=== PATIENT | male | born 1960 | race American Indian/Alaskan Native ===

== ENCOUNTER 2016-05-21 05:41 | Day surgery (SDC) | payer MEDICARE, MEDICAID ==
[~2016-05-21 05:41] MED LIST: Dextrose 5%-0.45% NaCl 1,000 ML IV SCH; Sodium Chloride 0.9% 10 ML Syringe FLUSH PRN
[2016-05-21] MEDS ORDERED: Midazolam 1 MG/ML 2 ML SDV ONE (06:44)
[2016-05-21] MEDS ORDERED: fentaNYL 100 MCG/2 ML SDV ONE (06:44)
[2016-05-21] MEDS ORDERED: fentaNYL 100 MCG/2 ML SDV IV ONE ×4 (06:58→10:47)
[2016-05-21] MEDS ORDERED: Midazolam 1 MG/ML 2 ML SDV IV ONE ×7 (06:59→10:47)
--- NOTE | 2016-05-21 10:02 | OR ---
DATE: 05/21/2016 PROCEDURE: Total colonoscopy, NBI, and multiple pinch biopsies. INSTRUMENT USED: CF-H180AL Olympus video colonoscope. PREMEDICATIONS: Fentanyl 125 mcg intravenous, Versed 4 mg intravenous. Nasal 2 L O2 cannula. The procedure was done under pulse oximetry, BP recording, and vehicle monitor technician. INDICATION: The patient with rectal bleeding. Colonoscopic examination is done for detection of any polypoid lesions and removal, endoscopic hemostasis therapy if needed. DESCRIPTION OF PROCEDURE: Initial rectal exam showed external hemorrhoidal tags. Rigid anoscopy showed moderate sized internal hemorrhoids without bleeding from them. The colonoscope was passed with ease. Numerous benign-appearing diminutive matted kind of polyps at least around 20 in number were noted in the rectal area, NBI views were obtained, numerous pinch biopsies were obtained and sent for histopathology. The scope was passed with ease up to the ileocecal area, photographs were taken of the cecum identified by landmarks of appendiceal orifice and ileocecal folds. Mucosa around the appendiceal orifice showed some diffuse erythema. The examination was compromised in a few areas due to the presence of large amount of fecal material that had to be aspirated. No bleeding was noted from any of the visualized areas at the commencement of the examination. No stricture. No vascular ectasia. No large isolated ulcerations seen. No evidence of diffuse inflammatory bowel disease in the form of friability, contact bleeding, or ulcerations. Probing the proximal sides of folds and flexures, using adequate distention and clearing up the stool material, withdrawal of the scope was made, cecum to rectum time over 6 minutes. No bleeding was noted from any of the visualized areas at the completion of examination. IMPRESSION: 1. External and internal hemorrhoids. 2. Multiple diminutive rectal polyps. The patient tolerated the procedure well. [facility] /[id number]
[2016-06-27 13:47] VITALS: BP 138/75
== END 2016-05-21 09:30 | disposition home or self-care (01) ==
LOC: DL.ENDO 05:41
PROVIDERS: ATTEND Internal Medicine Gastroenterology
DX: K62.1 Rectal polyp (principal); K64.4 Residual hemorrhoidal skin tags; I11.9 Hypertensive heart disease without heart failure; N18.9 Chronic kidney disease, unspecified; Z80.0 Family history of malignant neoplasm of digestive organs; Z99.2 Dependence on renal dialysis
CPT/HCPCS: 45380; 88305; J2250; J3010; J7042

== ENCOUNTER 2016-10-06 05:47 | Emergency (ER) | payer MEDICARE, MEDICAID ==
[2016-10-06] MEDS ORDERED: Ketorolac 30 MG/ML SDV IM ONE (05:59)
--- NOTE | 2016-10-06 06:06 | EDM.PDOC ---
ED HPI GENERAL MEDICAL PROBLEM - General Chief Complaint: Lower Extremity Injury/Pain Stated Complaint: HIP PAIN Time Seen by Provider: 10/06/16 06:00 Source of Information: Reports: Patient History Limitations: Reports: No Limitations - History of Present Illness INITIAL COMMENTS - FREE TEXT/NARRATIVE: states has charcot's foot from DM and walks crooked which will cause LBP on- off. present episode started last week but progressively gotten worse. denies recent re-injury. Right Hip Pain Score (Numeric/FACES): 9 - Related Data Allergies Allergy/AdvReac Type Severity Reaction Status Date / Time No Known Allergies Allergy Verified 10/06/16 06:03 Home Meds: Home Meds Aspirin [Halfprin] 81 mg PO DAILY 12/01/13 [History] Insulin Detemir [Levemir] 18 unit SQ DAILY 12/01/13 [History] Labetalol HCl [Labetalol] 400 mg PO TID 12/01/13 [History] Sodium Bicarbonate 650 mg PO BID 12/01/13 [History] Tamsulosin HCl [Flomax] 0.8 mg PO DAILY 12/01/13 [History] amLODIPine [Norvasc] 10 mg PO DAILY 12/01/13 [History] Acetaminophen [Non-Aspirin Pain Relief] 650 mg PO ASDIRECTED PRN 01/06/14 [ History] Bumetanide [Bumex] 2 mg PO BID 01/06/14 [History] Docusate Sodium [Colace] 100 mg PO TID 01/06/14 [History] Spironolactone [Aldactone] 25 mg PO BID 01/06/14 [History] Amitriptyline [Elavil] 50 mg PO DAILY PRN 11/13/15 [History] Calcitriol [Rocaltrol] 0.75 mcg PO DAILY 11/13/15 [History] Calcium Acetate [PhosLo] 2 tab PO TID 11/13/15 [History] Calcium Carbonate [Tums] 500 mg PO ASDIRECTED 11/13/15 [History] Metolazone [Zaroxolyn] 5 mg PO DAILY 11/13/15 [History] Psyllium with Sucrose [Metamucil] 1 each PO DAILY PRN 11/13/15 [History] Sennosides/Docusate Sodium [Senna-Docusate Sodium] 1 each PO BID 11/13/15 [ History] Sevelamer Carbonate [Renvela] 4 tab PO TIDMEALS 11/13/15 [History] cloNIDine [Catapres] 0.4 mg PO TID 11/13/15 [History] hydrOXYzine HCl [Atarax] 25 mg PO DAILY PRN 11/13/15 [History] Bisacodyl [Dulcolax] 10 mg PO BID 05/20/16 [History] Hydrocortisone [Hydrocortisone 2.5% Crm] 1 dose TOP ASDIRECTED 05/20/16 [History ] Magnesium Hydroxide [Milk of Magnesia] 1 dose PO ASDIRECTED PRN 05/20/16 [ History] Minoxidil [Loniten] 2.5 mg PO BID 05/20/16 [History] Mupirocin Oint [Bactroban Oint] 1 applic TOP ASDIRECTED 05/20/16 [History] Pregabalin [Lyrica] 50 mg PO BID 05/20/16 [History] Sennosides [Perdiem] 15 mg PO ASDIRECTED 05/20/16 [History] Vitamin B Complex [B Complex] 1 tab PO DAILY 05/20/16 [History] Past Medical History HEENT History: Reports: None Other HEENT History: Ears are plugged now. Cardiovascular History: Reports: Hypertension Respiratory History: Reports: None Gastrointestinal History: Reports: Chronic Constipation Genitourinary History: Reports: Chronic Renal Insuffiency, Dialysis, Peritoneal Other Genitourinary History: Has a peritoneal catheter in place. Musculoskeletal History: Reports: None Neurological History: Reports: None Psychiatric History: Reports: None Endocrine/Metabolic History: Reports: Diabetes, Type II Hematologic History: Reports: Anemia, Iron Deficiency Immunologic History: Reports: None Oncologic (Cancer) History: Reports: None Dermatologic History: Reports: None - Infectious Disease History Infectious Disease History: Reports: Chicken Pox, Hepatitis C, Mumps - Past Surgical History HEENT Surgical History: Reports: None Cardiovascular Surgical History: Reports: None Respiratory Surgical History: Reports: None GI Surgical History: Reports: Colonoscopy Male Surgical History: Reports: None Endocrine Surgical History: Reports: None Neurological Surgical History: Reports: None Musculoskeletal Surgical History: Reports: None Oncologic Surgical History: Reports: None Dermatological Surgical History: Reports: None Social & Family History - Family History Family Medical History: Noncontributory Cardiac: Reports: Hypertension Endocrine/Metabolic: Reports: Diabetes, Type I Oncologic: Reports: Colon - Tobacco Use Smoking Status *Q: Current Every Day Smoker Years of Tobacco use: 30 Packs/Tins Daily: 0.5 Used Tobacco, but Quit: No Second Hand Smoke Exposure: Yes - Caffeine Use Caffeine Use: Reports: Coffee, Tea - Alcohol Use Days Per Week of Alcohol Use: 3 Number of Drinks Per Day: 6 Total Drinks Per Week: 18 - Recreational Drug Use Recreational Drug Use: No Drug Use in Last 12 Months: No - Living Situation & Occupation Living situation: Reports: with Family Review of Systems - Review of Systems Review Of Systems: ROS reveals no pertinent complaints other than HPI. ED EXAM, GENERAL - Physical Exam Exam: See Below Exam Limited By: No Limitations General Appearance: Alert, WD/WN, Mild Distress, Other (distraught) Ears: Hearing Grossly Normal Throat/Mouth: Normal Voice, No Airway Compromise Head: Atraumatic Neck: Non-Tender, Full Range of Motion Respiratory/Chest: No Respiratory Distress Cardiovascular: Regular Rate, Rhythm GI/Abdominal: Soft, Non-Tender Back Exam: Muscle Spasm, Paraspinal Tenderness, Other (right LS with sciatica, gait limited to pain) Extremities: Other (right foot no gross acute D/D, NV ess wnl) Neurological: Alert, Oriented, Normal Cognition, No Motor/Sensory Deficits Psychiatric: Other (upset) Skin Exam: Warm, Dry, Normal Color Lymphatic: No Adenopathy Course - Vital Signs Last Recorded V/S: Last Vital Signs Temp 35.8 C 10/06/16 05:58 Pulse 81 10/06/16 05:58 Resp 20 10/06/16 05:58 BP 136/91 H 10/06/16 05:58 Pulse Ox 99 10/06/16 05:58 - Orders/Labs/Meds Orders: Active Orders 24 hr Category Date Time Status Acetaminophen/HYDROcodone [[place] 325-10 MG] Med 10/06/16 06:38 Once 1 tab PO ONETIME ONE Meds: Medications Discontinued Medications Generic Name Dose Route Start Last Admin Trade Name Freq PRN Reason Stop Dose Admin Ketorolac Tromethamine 30 mg 10/06/16 05:59 10/06/16 06:13 Toradol IM 10/06/16 06:00 30 mg ONETIME ONE Administration - Re-Assessments/Exams Free Text/Narrative Re-Assessment/Exam: 10/06/16 06:38 s/p toradol = better was sleeping arousable. Departure - Departure Time of Disposition: 06:39 Disposition: Home, Self-Care 01 Condition: Good Clinical Impression: Acute bilateral low back pain with right-sided sciatica - Discharge Information Instructions: Back Pain, Adult, [facility] Forms: ED Department Discharge Additional Instructions: 1) rest and avoid bending lifting straining 2) try ice or heat to sore areas 3) follow up at clinic or recheck as needed rx given; flexeril 10mg tid prn spasms x 12 vicodin 5/325mg bid prn x 6 - My Orders Last 24 Hours: My Active Orders 10/06/16 06:38 Acetaminophen/HYDROcodone [[place] 325-10 MG] 1 tab PO ONETIME ONE - Assessment/Plan Last 24 Hours: My Active Orders 10/06/16 06:38 Acetaminophen/HYDROcodone [[place] 325-10 MG] 1 tab PO ONETIME ONE
[2016-10-06] MEDS ORDERED: Acetaminophen/HYDROcodone 325-10 MG Tab PO ONE (06:38)
[2016-10-06 06:46] VITALS: BP 116/93
== END 2016-10-06 06:49 | disposition home or self-care (01) ==
LOC: DL.ED 05:47
DX: M54.41 Lumbago with sciatica, right side (principal); I12.9 Hypertensive chronic kidney disease with stage 1 through stage 4 chronic kidney disease, or unspecified chronic kidney disease; E11.22 Type 2 diabetes mellitus with diabetic chronic kidney disease; N18.9 Chronic kidney disease, unspecified; E11.610 Type 2 diabetes mellitus with diabetic neuropathic arthropathy; F17.210 Nicotine dependence, cigarettes, uncomplicated; Z79.82 Long term (current) use of aspirin; Z79.4 Long term (current) use of insulin; Z79.899 Other long term (current) drug therapy
CPT/HCPCS: 96372; 99283; A9270; J1885

== ENCOUNTER 2016-11-22 10:02 | Day surgery (SDC) | payer MEDICARE, MEDICAID ==
[2016-11-22] MEDS ORDERED: Lidocaine 1% 30 ML SDV INJECT ONE ×2 (10:03→11:44)
[2016-11-22] MEDS ORDERED: Midazolam 1 MG/ML 2 ML SDV IV ONE (10:03)
[2016-11-22] MEDS ORDERED: fentaNYL 100 MCG/2 ML SDV IV ONE (10:03)
[2016-11-22] MEDS ORDERED: Propofol 200 MG/20 ML SDV IV ONE (10:03)
[2016-11-22 10:16] VITALS: BP 151/88
[2016-11-22] MEDS ORDERED: Midazolam 1 MG/ML 2 ML SDV ONE (10:42)
[2016-11-22] MEDS ORDERED: fentaNYL 100 MCG/2 ML SDV ONE (10:43)
[2016-11-22] MEDS ORDERED: Propofol 200 MG/20 ML SDV ONE (10:43)
[2016-11-22] MEDS ORDERED: Lactated Ringers 1,000 ML IV SCH (10:45)
[2016-11-22] MEDS ORDERED: Lidocaine 1% 30 ML SDV ONE (11:20)
--- NOTE | 2016-11-22 13:32 | OR ---
DATE: 11/22/2016 PREOPERATIVE DIAGNOSIS: Chronic granuloma, right groin. POSTOPERATIVE DIAGNOSIS: Chronic granuloma, right groin. PROCEDURE: Wide local excision of chronic granuloma. ANESTHESIA: Local plus MAC. SPECIMEN: Skin and granuloma. INDICATION FOR PROCEDURE: This patient has had multiple areas of chronic infections. He has a draining fistula wound site from the right groin that intermittently appears to be infected. This by physical examination is most likely just chronic granulation tissue. DESCRIPTION OF PROCEDURE: After adequate preparation, 1% Xylocaine was used to infiltrate an elliptical area around this wound. This measures approximately 5- 6 cm in length. This was elliptically excised and carried down through the subcutaneous tissue to get a clear margin underneath the base. Hemostasis was controlled with the cautery and the clip java tech. A 2-0 Vicryl was used to close the dermal layer in an interrupted fashion, and 4-0 Monocryl was used for the skin. Steri-Strips were applied. The patient was taken to recovery room. [facility] /[id number]
== END 2016-11-22 13:45 | disposition home or self-care (01) ==
LOC: DL.SDS 10:02 → EDSTATUS 11:00 → DL.SDS 13:45
PROVIDERS: ATTEND Surgery
DX: L92.8 Other granulomatous disorders of the skin and subcutaneous tissue (principal); E10.22 Type 1 diabetes mellitus with diabetic chronic kidney disease; N18.9 Chronic kidney disease, unspecified; I10 Essential (primary) hypertension; Z79.4 Long term (current) use of insulin; Z99.2 Dependence on renal dialysis; Z98.890 Other specified postprocedural states; Z79.899 Other long term (current) drug therapy
CPT/HCPCS: 00400; 11406; 12032; J2250; J2704; J3010; J7120; 88305

== ENCOUNTER 2016-12-29 12:23 | Emergency (ER) | payer MEDICARE, MEDICAID ==
[2016-12-29 12:52] VITALS: BP 152/91
--- NOTE | 2016-12-29 12:55 | EDM.PDOC ---
ED HPI GENERAL MEDICAL PROBLEM - General Chief Complaint: Lower Extremity Injury/Pain Stated Complaint: RT HIP Time Seen by Provider: 12/29/16 12:50 Source of Information: Reports: Patient History Limitations: Reports: No Limitations - History of Present Illness INITIAL COMMENTS - FREE TEXT/NARRATIVE: 56 yo [place] male c/o right low back pain w/ radiation down leg to knee. Pt. states the problem has been present for one year but has worsened over the last week Onset: Unknown/Unsure Onset Date: 12/22/16 Onset Time: 12:00 Duration: Week(s):, Chronic Location: Reports: Back, Lower Extremity, Right Quality: Reports: Ache Severity: Moderate Improves with: Reports: Rest Worsens with: Reports: Movement Associated Symptoms: Reports: No Other Symptoms Right Hip Pain Score (Numeric/FACES): 8 - Related Data Allergies Allergy/AdvReac Type Severity Reaction Status Date / Time No Known Allergies Allergy Verified 11/22/16 11:11 Home Meds: Home Meds Aspirin [Halfprin] 81 mg PO DAILY 12/01/13 [History] Insulin Detemir [Levemir] 23 unit SQ BEDTIME 12/01/13 [History] Labetalol HCl [Labetalol] 200 mg PO TID 12/01/13 [History] Sodium Bicarbonate 650 mg PO BID 12/01/13 [History] Tamsulosin HCl [Flomax] 0.8 mg PO BEDTIME 12/01/13 [History] Bumetanide [Bumex] 2 mg PO BID 01/06/14 [History] Docusate Sodium [Colace] 100 mg PO TID 01/06/14 [History] Spironolactone [Aldactone] 25 mg PO BID 01/06/14 [History] Amitriptyline [Elavil] 50 mg PO BEDTIME PRN 11/13/15 [History] Calcitriol [Rocaltrol] 1 mcg PO DAILY 11/13/15 [History] Calcium Acetate [PhosLo] 2 tab PO TID 11/13/15 [History] Calcium Carbonate [Tums] 500 mg PO ASDIRECTED 11/13/15 [History] Metolazone [Zaroxolyn] 5 mg PO DAILY 11/13/15 [History] Psyllium with Sucrose [Metamucil] 1 each PO DAILY PRN 11/13/15 [History] Sennosides/Docusate Sodium [Senna-Docusate Sodium] 1 each PO TID 11/13/15 [ History] Sevelamer Carbonate [Renvela] 4 tab PO TIDMEALS 11/13/15 [History] hydrOXYzine HCl [Atarax] 25 mg PO DAILY PRN 11/13/15 [History] Bisacodyl [Dulcolax] 1 mg PO BEDTIME 05/20/16 [History] Mupirocin Oint [Bactroban Oint] 1 applic TOP ASDIRECTED 05/20/16 [History] Pregabalin [Lyrica] 50 mg PO BID 05/20/16 [History] Sennosides [Perdiem] 15 mg PO TID 05/20/16 [History] Vitamin B Complex [B Complex] 1 tab PO DAILY 05/20/16 [History] Hydrocodone/Acetaminophen [Hydrocodon-Acetaminophen 5-325] 1 tab PO ASDIRECTED PRN 11/18/16 [History] Valsartan [Valsartan] 1 tab PO BID 12/29/16 [History] cloNIDine [Catapres] 0.5 mg PO BID 12/29/16 [History] Past Medical History HEENT History: Reports: Impaired Vision Other HEENT History: Ears are plugged now. WEARS CORRECTIVE LENS Cardiovascular History: Reports: Hypertension Respiratory History: Reports: None Gastrointestinal History: Reports: Chronic Constipation Genitourinary History: Reports: Chronic Renal Insuffiency, Dialysis, Peritoneal Other Genitourinary History: Has a peritoneal catheter in place. Musculoskeletal History: Reports: None Neurological History: Reports: None Psychiatric History: Reports: None Endocrine/Metabolic History: Reports: Diabetes, Type II Hematologic History: Reports: Anemia, Iron Deficiency Immunologic History: Reports: None Oncologic (Cancer) History: Reports: None Dermatologic History: Reports: None - Infectious Disease History Infectious Disease History: Reports: Chicken Pox, Hepatitis C, Mumps - Past Surgical History Head Surgeries/Procedures: Reports: None HEENT Surgical History: Reports: None Cardiovascular Surgical History: Reports: None Respiratory Surgical History: Reports: None GI Surgical History: Reports: Colonoscopy Male Surgical History: Reports: None Endocrine Surgical History: Reports: None Neurological Surgical History: Reports: None Musculoskeletal Surgical History: Reports: None Oncologic Surgical History: Reports: None Dermatological Surgical History: Reports: None Social & Family History - Family History Family Medical History: Noncontributory Cardiac: Reports: Hypertension Endocrine/Metabolic: Reports: Diabetes, Type I Oncologic: Reports: Colon - Tobacco Use Smoking Status *Q: Current Every Day Smoker Years of Tobacco use: 30 Packs/Tins Daily: 0.5 Used Tobacco, but Quit: No Second Hand Smoke Exposure: Yes - Caffeine Use Caffeine Use: Reports: Coffee, Tea - Alcohol Use Days Per Week of Alcohol Use: 3 Number of Drinks Per Day: 6 Total Drinks Per Week: 18 - Recreational Drug Use Recreational Drug Use: No Drug Use in Last 12 Months: No - Living Situation & Occupation Living situation: Reports: with Family Review of Systems - Review of Systems Review Of Systems: See Below Constitutional: Reports: No Symptoms Eyes: Reports: No Symptoms Ears: Reports: No Symptoms Nose: Reports: No Symptoms Mouth/Throat: Reports: No Symptoms Respiratory: Reports: No Symptoms Cardiovascular: Reports: No Symptoms GI/Abdominal: Reports: No Symptoms Genitourinary: Reports: No Symptoms Musculoskeletal: Reports: Back Pain (low back on right) Skin: Reports: No Symptoms Neurological: Reports: Tingling (right leg) Psychiatric: Reports: No Symptoms ED EXAM, GENERAL - Physical Exam Exam: See Below Exam Limited By: No Limitations General Appearance: Alert, WD/WN, No Apparent Distress Eye Exam: Bilateral Eye: PERRL Ears: Normal External Exam Nose: Normal Inspection Throat/Mouth: Normal Inspection Head: Atraumatic Neck: Normal Inspection Respiratory/Chest: No Respiratory Distress, Lungs Clear Cardiovascular: Normal Peripheral Pulses, Regular Rate, Rhythm Peripheral Pulses: 2+: Popliteal (L), Popliteal (R) Back Exam: Normal Inspection, Other (right low back tenderness) Extremities: Normal Inspection, Normal Range of Motion Neurological: Alert Psychiatric: Normal Affect Skin Exam: Warm, Dry, Intact Lymphatic: No Adenopathy Course - Vital Signs Last Recorded V/S: Last Vital Signs Temp 36.7 C 12/29/16 12:29 Pulse 91 12/29/16 12:29 Resp 18 12/29/16 12:29 BP 152/91 H 12/29/16 12:29 Pulse Ox 97 12/29/16 12:29 - Orders/Labs/Meds Orders: Active Orders 24 hr Category Date Time Status Pelvis 1V or 2V [CR] Urgent Exams 12/29/16 12:57 Taken Departure - Departure Time of Disposition: 13:25 Disposition: Home, Self-Care 01 Condition: Good Clinical Impression: Sciatica of right side - Discharge Information Forms: ED Department Discharge Additional Instructions: Rest Apply moist heat to area TID X 15 mins. Increase your LYRICA to 50mg TID F/U w/ PCP - My Orders Last 24 Hours: My Active Orders 12/29/16 12:57 Pelvis 1V or 2V [CR] Urgent - Assessment/Plan Last 24 Hours: My Active Orders 12/29/16 12:57 Pelvis 1V or 2V [CR] Urgent
== END 2016-12-29 13:47 | disposition home or self-care (01) ==
LOC: DL.ED 12:23
DX: M54.41 Lumbago with sciatica, right side (principal); E11.22 Type 2 diabetes mellitus with diabetic chronic kidney disease; I12.9 Hypertensive chronic kidney disease with stage 1 through stage 4 chronic kidney disease, or unspecified chronic kidney disease; N18.9 Chronic kidney disease, unspecified; F17.210 Nicotine dependence, cigarettes, uncomplicated; Z79.84 Long term (current) use of oral hypoglycemic drugs; Z79.4 Long term (current) use of insulin; Z79.82 Long term (current) use of aspirin; Z79.899 Other long term (current) drug therapy
CPT/HCPCS: 72170; 99283

== ENCOUNTER 2017-07-06 17:36 | Emergency (ER) | payer MEDICARE, MEDICAID ==
--- NOTE | 2017-07-06 18:09 | EDM.PDOC ---
<Chela Zaldivar - Last Filed: 07/06/17 18:30> ED HPI GENERAL MEDICAL PROBLEM - General Chief Complaint: General Stated Complaint: [id number] BLOOD IN PERITONIEL CAVITY PAIN IN SIDE Time Seen by Provider: 07/06/17 18:00 Source of Information: Reports: Patient, Family, RN, RN Notes Reviewed History Limitations: Reports: No Limitations - History of Present Illness INITIAL COMMENTS - FREE TEXT/NARRATIVE: Pt presents to the ER with c/o blood in his peritoneal dialysis solution exchange last night. Pt states he was working in the yard yesterday and may have bumped the dialysis catheter area. He also had a liver biopsy done 1 week ago. He states he still produces urine and has not seen blood in his urine. He states he was dx with Liver CA. Pt states he has pain in the right flank area. Pt denies fever or chills, chest pain, SOB, N/V/D. Onset: Sudden Onset Date: 07/05/17 Left Lower Abdomen Pain Score (Numeric/FACES): 2 - Related Data Allergies Allergy/AdvReac Type Severity Reaction Status Date / Time No Known Allergies Allergy Verified 07/06/17 17:47 Home Meds: Home Meds Aspirin [Halfprin] 81 mg PO DAILY 12/01/13 [History] Insulin Detemir [Levemir] 23 unit SQ DAILY 12/01/13 [History] Labetalol HCl [Labetalol] 200 mg PO TID 12/01/13 [History] Sodium Bicarbonate 650 mg PO BID 12/01/13 [History] Tamsulosin HCl [Flomax] 0.8 mg PO BEDTIME 12/01/13 [History] Bumetanide [Bumex] 2 mg PO BID 01/06/14 [History] Docusate Sodium [Colace] 100 mg PO TID 01/06/14 [History] Amitriptyline [Elavil] 50 mg PO BEDTIME PRN 11/13/15 [History] Calcitriol [Rocaltrol] 1 mcg PO DAILY 11/13/15 [History] Calcium Acetate [PhosLo] 2 tab PO TID 11/13/15 [History] Calcium Carbonate [Tums] 500 mg PO ASDIRECTED 11/13/15 [History] Metolazone [Zaroxolyn] 5 mg PO DAILY 11/13/15 [History] Psyllium with Sucrose [Metamucil] 1 each PO DAILY PRN 11/13/15 [History] Sennosides/Docusate Sodium [Senna-Docusate Sodium] 1 each PO TID 11/13/15 [ History] Sevelamer Carbonate [Renvela] 4 tab PO TIDMEALS 11/13/15 [History] hydrOXYzine HCl [Atarax] 25 mg PO DAILY PRN 11/13/15 [History] Mupirocin Oint [Bactroban Oint] 1 applic TOP ASDIRECTED 05/20/16 [History] Pregabalin [Lyrica] 50 mg PO BID 05/20/16 [History] Sennosides [Perdiem] 15 mg PO TID 05/20/16 [History] Vitamin B Complex [B Complex] 1 tab PO DAILY 05/20/16 [History] Valsartan 1 tab PO BID 12/29/16 [History] cloNIDine [Catapres] 0.5 mg PO BID 12/29/16 [History] Clindamycin Phosphate 1 each TP DAILY PRN 07/06/17 [History] NIFEdipine [Nifedipine ER] 60 mg PO DAILY 07/06/17 [History] hydrALAZINE HCl [Hydralazine HCl] 100 mg PO TID 07/06/17 [History] oxyCODONE [Oxycodone HCl] 10 mg PO TID 07/06/17 [History] Past Medical History HEENT History: Reports: Impaired Vision Other HEENT History: Ears are plugged now. WEARS CORRECTIVE LENS Cardiovascular History: Reports: Hypertension Respiratory History: Reports: None Gastrointestinal History: Reports: Chronic Constipation Genitourinary History: Reports: Chronic Renal Insuffiency, Dialysis, Peritoneal Other Genitourinary History: Has a peritoneal catheter in place. Musculoskeletal History: Reports: None Other Musculoskeletal History: right hip pain Neurological History: Reports: None Psychiatric History: Reports: None Endocrine/Metabolic History: Reports: Diabetes, Type II Hematologic History: Reports: Anemia, Iron Deficiency Immunologic History: Reports: None Oncologic (Cancer) History: Reports: Liver Dermatologic History: Reports: None - Infectious Disease History Infectious Disease History: Reports: Chicken Pox, Hepatitis C, Mumps - Past Surgical History Head Surgeries/Procedures: Reports: None HEENT Surgical History: Reports: None Cardiovascular Surgical History: Reports: None Respiratory Surgical History: Reports: None GI Surgical History: Reports: Colonoscopy Male Surgical History: Reports: None Endocrine Surgical History: Reports: None Neurological Surgical History: Reports: None Musculoskeletal Surgical History: Reports: None Oncologic Surgical History: Reports: None Dermatological Surgical History: Reports: None Social & Family History - Family History Family Medical History: Noncontributory Cardiac: Reports: Hypertension Endocrine/Metabolic: Reports: Diabetes, Type I Oncologic: Reports: Colon - Tobacco Use Smoking Status *Q: Current Every Day Smoker Years of Tobacco use: 30 Packs/Tins Daily: 0.5 Used Tobacco, but Quit: No Second Hand Smoke Exposure: Yes - Caffeine Use Caffeine Use: Reports: Coffee - Alcohol Use Days Per Week of Alcohol Use: 3 Number of Drinks Per Day: 6 Total Drinks Per Week: 18 - Recreational Drug Use Recreational Drug Use: No Drug Use in Last 12 Months: No - Living Situation & Occupation Living situation: Reports: with Family ED ROS GENERAL - Review of Systems Review Of Systems: ROS reveals no pertinent complaints other than HPI. ED EXAM, GENERAL - Physical Exam Exam: See Below Exam Limited By: No Limitations General Appearance: Alert, WD/WN, No Apparent Distress Eye Exam: Bilateral Eye: EOMI, Normal Inspection Ears: Normal External Exam, Hearing Grossly Normal Nose: Normal Inspection Throat/Mouth: Normal Inspection, Normal Voice, No Airway Compromise Head: Atraumatic, Normocephalic Neck: Normal Inspection, Supple, Non-Tender, Full Range of Motion Respiratory/Chest: No Respiratory Distress, Lungs Clear, Normal Breath Sounds, No Accessory Muscle Use, Chest Non-Tender Cardiovascular: Normal Peripheral Pulses, Regular Rate, Rhythm, No Edema, No Gallop, No JVD, No Murmur, No Rub GI/Abdominal: Normal Bowel Sounds, Soft, Non-Tender, No Organomegaly, No Distention, No Abnormal Bruit, No Mass, Other (peritoneal dialysis catheter present, dressing appears clean and dry) (Male) Exam: Deferred Rectal (Males) Exam: Deferred Back Exam: Normal Inspection, Full Range of Motion Extremities: Normal Inspection, Normal Range of Motion, Non-Tender, No Pedal Edema, Normal Capillary Refill Neurological: Alert, Oriented, CN II-XII Intact, Normal Cognition, Normal Gait, Normal Reflexes, No Motor/Sensory Deficits Psychiatric: Normal Affect, Normal Mood Skin Exam: Warm, Dry, Intact, No Rash, Jaundice (slight), Pallor Lymphatic: No Adenopathy Course - Vital Signs Last Recorded V/S: Last Vital Signs Temp 97.0 F 07/06/17 17:43 Pulse 86 07/06/17 17:43 Resp 18 07/06/17 17:43 BP 171/82 H 07/06/17 17:43 Pulse Ox 96 07/06/17 17:43 - Orders/Labs/Meds Orders: Active Orders 24 hr Category Date Time Status Abdomen Pelvis wo Cont [CT] Urgent Exams 07/06/17 18:20 Taken UA W/MICROSCOPIC [URIN] Stat Lab 07/06/17 18:09 Ordered Labs: Laboratory Tests 07/06/17 07/06/17 Range/Units 18:12 18:12 WBC 10.8 H (5.0-10.0) 10^3/uL RBC 3.25 L (4.6-6.2) 10^6/uL Hgb 9.8 L D (14.0-18.0) g/dL Hct 29.6 L (40.0-54.0) % MCV 91.1 (80-100) fL MCH 30.2 (27.0-34.0) pg MCHC 33.1 (33.0-35.0) g/dL Plt Count 273 (150-450) 10^3/uL Neut % (Auto) 68.6 (42.2-75.2) % Lymph % (Auto) 17.4 L (20.5-50.1) % [place] % (Auto) 8.6 H (2-8) % Eos % (Auto) 4.6 H (1.0-3.0) % Baso % (Auto) 0.8 (0.0-1.0) % Sodium 129 L (135-145) mmol/L Potassium 5.7 H D (3.6-5.0) mmol/L Chloride 86 L (101-111) mmol/L Carbon Dioxide 29.0 (21.0-31.0) mmol/L Anion Gap 19.7 BUN 58 H (7-18) mg/dL Creatinine 13.4 H D (0.6-1.3) mg/dL Est Cr Clr Drug Dosing 6.92 mL/min Estimated GFR (MDRD) 4 BUN/Creatinine Ratio 4.32 Glucose 204 H (74-105) mg/dL Calcium 8.9 (8.4-10.2) mg/dl Total Bilirubin 0.8 (0.2-1.0) mg/dL AST 31 (10-42) IU/L ALT 18 (10-60) IU/L Alkaline Phosphatase 103 (42-121) IU/L Total Protein 7.2 (6.7-8.2) g/dl Albumin 3.3 (3.2-5.5) g/dl Globulin 3.9 Albumin/Globulin Ratio 0.85 - Re-Assessments/Exams Free Text/Narrative Re-Assessment/Exam: 07/06/17 18:31 Discussed the patient case with Dr. Mcintosh. He states he can have a CT without contrast as he still urinates a few times a day. He states that there could be bleeding from the biopsy sight. He states to call with any further problems if anything acute is found on the CT. If CT is negative and labs are negative, the patient may follow up in the clinic this week. Departure - Departure Disposition: Home, Self-Care 01 Clinical Impression: Peritoneal dialysis catheter in place CRF (chronic renal failure) Qualifiers: Chronic kidney disease stage: unspecified stage Qualified Code(s): N18.9 - Chronic kidney disease, unspecified - Discharge Information Referrals: Aracely Leigh MD [Primary Care Provider] - Forms: ED Department Discharge Additional Instructions: Begin dialysis when arrive home tonight follow up with wheelage clerk in am Urgent follow up if worsening of symptoms Recheck labMonday <Betzy Moser - Last Filed: 07/06/17 19:39> Departure - Departure Time of Disposition: 19:27 Condition: Fair
[2017-07-06 19:51] VITALS: BP 154/80
== END 2017-07-06 19:46 | disposition home or self-care (01) ==
LOC: DL.ED 17:36
DX: I12.9 Hypertensive chronic kidney disease with stage 1 through stage 4 chronic kidney disease, or unspecified chronic kidney disease (principal); E11.22 Type 2 diabetes mellitus with diabetic chronic kidney disease; N18.9 Chronic kidney disease, unspecified; F17.210 Nicotine dependence, cigarettes, uncomplicated; Z79.82 Long term (current) use of aspirin; Z79.4 Long term (current) use of insulin; Z79.899 Other long term (current) drug therapy; Z99.2 Dependence on renal dialysis
CPT/HCPCS: 36415; 74176; 80053; 85025; 99284

== ENCOUNTER 2020-03-24 06:02 | Day surgery (SDC) | payer MEDICARE, MEDICAID ==
[2020-03-24] MEDS ORDERED: fentaNYL 100 MCG/2 ML SDV IV ONE ×4 (06:03→06:49)
[2020-03-24] MEDS ORDERED: Midazolam 1 MG/ML 2 ML SDV IV ONE ×7 (06:03→06:47)
[2020-03-24] MEDS ORDERED: fentaNYL 100 MCG/2 ML SDV ONE (06:19)
[2020-03-24] MEDS ORDERED: Midazolam 1 MG/ML 2 ML SDV ONE (06:19)
--- NOTE | 2020-03-24 08:22 | OR ---
DATE: 03/24/2020 PROCEDURE: Total colonoscopy. INSTRUMENT USED: PCF-H190DL Olympus video colonoscope. PREMEDICATIONS: Fentanyl 125 mcg intravenous, Versed 4 mg intravenous, nasal O2 cannula. The procedure was done under pulse oximetry, BP recording, and metal cutter. INDICATION: Patient with progressive constipation and anemia, unexplained and not responsive to medical measures. Colonoscopic examination is done for detection of any polypoid lesions and removal, endoscopic hemostasis therapy if needed. DESCRIPTION OF PROCEDURE: Initial rectal exam was unremarkable. Rigid anoscopy showed small internal hemorrhoids without bleeding from them. The colonoscope was passed with ease up to the ileocecal area. Photographs were taken of the normal-appearing cecum, identified by landmarks of appendiceal orifice and double-bulged ileocecal folds. The colon was found to be long and redundant. No bleeding was noted from any of the visualized areas at the commencement of the examination. The bowel preparation was found to be adequate, [place] scale 2 in all the regions, total number 6. No stricture. No vascular ectasia. No large isolated ulcerations seen. No evidence of diffuse inflammatory bowel disease in the form of friability, contact bleeding, or ulcerations. No polyp or tumor mass identified. Probing the proximal sides of folds and flexures using adequate distention and clearing up the stool material, withdrawal of the scope was made. Cecum to rectum time over 6 minutes. No bleeding was noted from any of the visualized areas at the completion of examination. IMPRESSION: Internal hemorrhoids. The patient tolerated the procedure well. [facility] /[id number]
[2020-03-24 09:02] VITALS: BP 216/92; PULSE 94
--- NOTE | 2020-03-24 09:48 | LETTER ---
03/24/2020 RE: JUNI AZUL : 1960 Yaima Keenan PA-C [address] [address] Dear Ms. Keenan: Mr. Juni Kaufman had colonoscopic examination done this morning, and he tolerated the procedure well. I herewith send a copy of the endoscopy note and photographs for your review. Thank you, Sincerely, [facility] /[id number]
== END 2020-03-24 08:50 | disposition home or self-care (01) ==
LOC: DL.ENDO 06:02
PROVIDERS: ATTEND Internal Medicine Gastroenterology
DX: K59.00 Constipation, unspecified (principal); D64.9 Anemia, unspecified; K64.8 Other hemorrhoids; E11.22 Type 2 diabetes mellitus with diabetic chronic kidney disease; N18.9 Chronic kidney disease, unspecified; I12.9 Hypertensive chronic kidney disease with stage 1 through stage 4 chronic kidney disease, or unspecified chronic kidney disease; E78.5 Hyperlipidemia, unspecified; Z99.2 Dependence on renal dialysis
CPT/HCPCS: 45378; J2250; J3010; J7042